=== PATIENT | female | born 1980 | race Caucasian/White ===

== ENCOUNTER 2018-07-09 16:37 | Outpatient (REF) | payer OTHER, SELFPAY ==
[2018-07-09 19:57] LABS: Cholesterol 217 mg/dL (50-200); Glucose 83 mg/dL (70-100); HDL Cholesterol 55 mg/dL (40-60); LDL CHOLESTEROL 141 mg/dL (<100); Triglyceride 152 mg/dL (30-150)
== END 2018-07-09 16:57 ==
LOC: LBN 16:37
PROVIDERS: PCP Nurse Practitioner Family; Visit Provider Nurse Practitioner Family
DX: Z13.220 Encounter for screening for lipoid disorders (principal); Z13.1 Encounter for screening for diabetes mellitus
CPT/HCPCS: 80061; 82947; 83721

== ENCOUNTER 2019-07-31 09:17 | Outpatient (REF) | payer OTHER, SELFPAY ==
[2019-07-31 20:16] LABS: BUN 11 mg/dL (7-18); CREATININE 0.78 mg/dL (0.55-1.02); Calcium 8.7 mg/dL (8.5-10.1); Calculated LDL 127 mg/dL; Chloride 104 mmol/L (98-107); Cholesterol 213 mg/dL (50-200); Glucose 117 mg/dL (70-100); HDL Cholesterol 46 mg/dL (40-60); Potassium 4.7 mmol/L (3.5-5.1); Sodium 141 mmol/L (136-145); Triglyceride 203 mg/dL (30-150); Vitamin B12 1614 pg/mL (193-986)
== END 2019-07-31 09:37 ==
LOC: LBN 09:17
PROVIDERS: PCP Nurse Practitioner Family; Visit Provider Internal Medicine
DX: I10 Essential (primary) hypertension (principal); R53.83 Other fatigue
CPT/HCPCS: 80048; 80061; 82607

== ENCOUNTER 2020-08-26 08:51 | Outpatient (REF) | payer OTHER, SELFPAY ==
[2020-08-29 11:50] LABS: SARS-CoV-2 RNA Not Detected (NotDetected); SARS-CoV-2 RNA Source Nasal/Nares
== END 2020-08-26 09:11 ==
LOC: NCHCN 08:51
PROVIDERS: PCP Nurse Practitioner Family; Visit Provider Nurse Practitioner Family
DX: Z11.4 Encounter for screening for human immunodeficiency virus [HIV] (principal); Z11.59 Encounter for screening for other viral diseases
CPT/HCPCS: U0003

== ENCOUNTER 2021-02-08 18:59 | Outpatient (REF) | payer OTHER, SELFPAY ==
[2021-02-09 01:34] LABS: COVID-19 RT-PCR UVMMC Result Negative (Negative)
== END 2021-02-08 19:00 | disposition home or self-care (01) ==
LOC: NCHCN 18:59
PROVIDERS: PCP Nurse Practitioner Family; Visit Provider Physician Assistant
DX: Z20.822 Contact with and (suspected) exposure to COVID-19 (principal)
CPT/HCPCS: U0003